=== PATIENT | male | born 1975 | race Two or more races ===

== ENCOUNTER 2023-06-10 15:21 | Inpatient (IN) | payer MEDICAID, OTHER ==
[~2023-06-10] VITALS: Ht 172.7 cm; Wt 89.8 kg
[~2023-06-10 15:21] MED LIST: CEPH500C2 PO
[2023-06-10] MEDS ORDERED: METO25TA20 PO (16:51)
[2023-06-10] MEDS ORDERED: MULT-447 PO (16:51)
[2023-06-10] MEDS ORDERED: GABA300C PO (16:51)
[2023-06-10] MEDS ORDERED: BACL10TA PO (16:51)
[2023-06-10] MEDS ORDERED: HYDR-4076 PO (16:51)
[2023-06-10] MEDS ORDERED: INSU100I40 SQ (16:51)
[2023-06-10] MEDS ORDERED: CRAN425C6 PO (16:51)
[2023-06-10] MEDS ORDERED: ZINC220T3 PO (16:51)
[2023-06-10] MEDS ORDERED: THIA100T70 PO (16:51)
[2023-06-10] MEDS ORDERED: LORA-258 PO (16:51)
[2023-06-10] MEDS ORDERED: ACET-868 PO ×2 (16:51)
[2023-06-10] MEDS ORDERED: DICL100G34 TP (16:51)
[2023-06-10] MEDS ORDERED: ATOR40TA PO (16:51)
[2023-06-10] MEDS ORDERED: ASCO-340 PO (16:51)
[2023-06-10 17:47] LABS: BASOPHILS # (AUTO) 0.1 K/uL (0.0-0.2); BASOPHILS % (AUTO) 0.5 % (0.0-2.0); EOSINOPHILS # (AUTO) 0.2 K/uL (0.0-0.7); EOSINOPHILS % (AUTO) 1.5 % (0.0-6.0); HEMATOCRIT 38 % (39-51); HEMOGLOBIN 12.2 g/dL (13.5-17.5); LYMPHOCYTES # (AUTO) 0.8 K/uL (0.8-4.8); LYMPHOCYTES % (AUTO) 6.6 % (20.0-44.0); MEAN CORPUSCULAR HEMOGLOBIN 29 PG (26.0-33.0); MEAN CORPUSCULAR HGB CONC 32 g/dl (31.0-36.0); MEAN CORPUSCULAR VOLUME 90 fL (80-96); MONOCYTES # (AUTO) 0.7 K/uL (0.1-1.30); MONOCYTES % (AUTO) 5.1 % (2.0-12.0); NEUTROPHILS # (AUTO) 11.1 K/uL (1.8-8.9); NEUTROPHILS % (AUTO) 86.3 % (43.0-81.0); PLATELET COUNT (AUTO) 266 K/uL (150-450); RED BLOOD CELL COUNT(AUTO) 4.24 MIL/uL (4.5-6.0); RED CELL DISTRIBUTION WIDTH 15.1 % (11.5-15.0); WHITE BLOOD COUNT (AUTO) 12.8 K/uL (4.3-11.0)
[2023-06-10 17:59] LABS: APPEARANCE,URINE SLIGHTLY CLOUDY (CLEAR); BILIRUBIN,URINE 1+ (NEGATIVE); BLOOD, URINE NEGATIVE Ery/uL (NEGATIVE); COLOR,URINE ORANGE (YELLOW); KETONES,URINE NEGATIVE (NEGATIVE); LEUKOCYTE ESTERASE ,URINE 1+ (NEGATIVE); NITRITE, URINE NEGATIVE (NEGATIVE); PH,URINE 6.5 (5.0-8.0); PROTEIN,URINE 3+ mg/dl (NEGATIVE); UGLUCOSE NEGATIVE (NEGATIVE); UROBILINOGEN,URINE 0.2 EU/dL (0.2)
[2023-06-10 18:00] LABS: INR 1.08 (0.91-1.10); PROTHROMBIN TIME 11.3 SECS (9.2-11.1)
[2023-06-10 18:01] LABS: CALCIUM, SERUM 9.6 mg/dL (8.5-10.1); CARBON DIOXIDE 25 mmol/L (21-32); CHLORIDE 103 mmol/L (98-107); CREATININE 1.1 mg/dL (0.6-1.3); GLUCOSE 136 mg/dL (74-106); POTASSIUM 3.9 mmol/L (3.5-5.1); SODIUM SERUM 137 mmol/L (136-145); UREA NITROGEN, BLOOD 13 mg/dL (7-18)
[2023-06-10 18:04] LABS: ALCOHOL, BLOOD < 3 mg/dL (0-10)
[2023-06-10 18:05] LABS: ACETAMINOPHEN 0 ug/ml (10-30); SALICYLATE < 0.2 mg/dL (2.8-20.0)
[2023-06-10 18:06] LABS: ALANINE AMINOTRANSFERASE 39 U/L (12-78); ALBUMIN 2.7 g/dL (3.4-5.0); ALKALINE PHOSPHATASE 170 U/L (46-116); ASPARTATE AMINOTRANSFERASE 25 U/L (15-37); BILIRUBIN,DIRECT 0.2 mg/dL (0.0-0.2); BILIRUBIN,TOTAL 0.9 mg/dL (0.2-1.0); TOTAL PROTEIN, SERUM 8.5 g/dL (6.4-8.2)
[2023-06-10 18:13] LABS: ADD URINE CULTURE YES; BACTERIA,URINE 1+ /HPF (None Seen); RBC,URINE 0-2 /HPF (0-2); YEAST,URINE Many /HPF (None Seen)
[2023-06-10 18:14] LABS: MUCUS,URINE Moderate /LPF (None Seen)
[2023-06-10] MEDS ORDERED: VANCOMYCIN 1 GM in IV D5W 250 ML IV ONE (18:30)
[2023-06-10] MEDS ORDERED: PIPERACILLIN /TAZOBACTAM 3.375 G in IV D5W 50 ML IV ONE (18:30)
[2023-06-10 18:31] LABS: BARBITURATE, URINE NEGATIVE (NEGATIVE); BENZODIAZEPINE, URINE NEGATIVE (NEGATIVE); CANNABINOID, URINE NEGATIVE (NEGATIVE); COCCAINE, URINE NEGATIVE (NEGATIVE); OPIATE, URINE NEGATIVE (NEGATIVE); PHENCYCLIDINE SCREEN,URINE NEGATIVE (NEGATIVE)
[2023-06-10 18:32] LABS: AMPHETAMINE, URINE POSITIVE (NEGATIVE)
[2023-06-10] MEDS ORDERED: VANCOMYCIN 1 GM /D5W 250 ML PB IV ONE (18:50)
[2023-06-10] MEDS ORDERED: PIPERACI/TAZO 3.375GM/D5W 50ML PB IV ONE (18:50)
[2023-06-10] MEDS ORDERED: IV NS 0.9% 1,000 ML BAG IV ONE (20:00)
[2023-06-10 21:10] VITALS: BP 115/63; TEMP 97.5; O2SAT 99
[2023-06-10] MEDS ORDERED: DICLOFENAC TOPICAL 100 GM TUBE TP PRN (21:30)
[2023-06-10] MEDS ORDERED: LORAZEPAM 0.5 MG TABLET PO PRN (21:30)
[2023-06-10] MEDS ORDERED: DEXTROSE 50%-WATER 50 ML DISP.SYRIN IV PRN (21:30)
[2023-06-10] MEDS ORDERED: ONDANSETRON HCL/PF 4 MG/2 ML VIAL IVP PRN (21:30)
[2023-06-10] MEDS: BLOOD SUGAR DIAGNOSTIC 1 EACH STRIP IN SCH (22:00)
[2023-06-10] MEDS: ATORVASTATIN 40 MG TABLET PO SCH (22:31)
[2023-06-10] MEDS: GABAPENTIN 300 MG CAPSULE PO SCH (22:31)
[2023-06-10] MEDS: BACLOFEN (10 MG) 10 MG TABLET PO SCH (22:31)
[2023-06-10] MEDS: ENOXAPARIN SODIUM 40 MG/0.4 ML DISP.SYRIN SQ SCH (22:32)
[2023-06-11] MEDS ORDERED: PIPERACI/TAZO 3.375GM/D5W 50ML PB IV ONE (00:14)
[2023-06-11] MEDS: IV NS 0.9% 1,000 ML IV PRN ×2 (00:24→20:50)
[2023-06-11] MEDS: ZOSYN IVPB 3.375 G in IV D5W 50ml IV SCH ×2 (00:55→06:40)
[2023-06-11] MEDS ORDERED: VANCOMYCIN 1 GM in IV D5W 250ml IV ONE ×2 (03:00→06:30)
[2023-06-11] MEDS: GABAPENTIN 300 MG CAPSULE PO SCH ×3 (05:16→20:20)
[2023-06-11] MEDS: BACLOFEN (10 MG) 10 MG TABLET PO SCH ×3 (05:16→20:20)
[2023-06-11 06:50] LABS: BASOPHILS % (AUTO) 0.4 % (0.0-2.0); EOSINOPHILS # (AUTO) 0.2 K/uL (0.0-0.7); EOSINOPHILS % (AUTO) 2.3 % (0.0-6.0); HEMATOCRIT 36 % (39-51); HEMOGLOBIN 11.7 g/dL (13.5-17.5); LYMPHOCYTES # (AUTO) 1.1 K/uL (0.8-4.8); LYMPHOCYTES % (AUTO) 11.9 % (20.0-44.0); MEAN CORPUSCULAR HEMOGLOBIN 30 PG (26.0-33.0); MEAN CORPUSCULAR HGB CONC 33 g/dl (31.0-36.0); MEAN CORPUSCULAR VOLUME 90 fL (80-96); MONOCYTES # (AUTO) 0.6 K/uL (0.1-1.30); MONOCYTES % (AUTO) 6.6 % (2.0-12.0); NEUTROPHILS % (AUTO) 78.8 % (43.0-81.0); PLATELET COUNT (AUTO) 199 K/uL (150-450); RED BLOOD CELL COUNT(AUTO) 3.95 MIL/uL (4.5-6.0); RED CELL DISTRIBUTION WIDTH 15.1 % (11.5-15.0); WHITE BLOOD COUNT (AUTO) 8.9 K/uL (4.3-11.0)
[2023-06-11] MEDS: BLOOD SUGAR DIAGNOSTIC 1 EACH STRIP IN SCH ×4 (06:56→21:59)
[2023-06-11 07:00] VITALS: BP 140/76; TEMP 97.8; O2SAT 97
[2023-06-11 07:11] LABS: CALCIUM, SERUM 9.2 mg/dL (8.5-10.1); CREATININE 0.9 mg/dL (0.6-1.3); MAGNESIUM 2.1 mg/dL (1.8-2.4); PHOSPHORUS 2.8 mg/dL (2.5-4.9); POTASSIUM 3.4 mmol/L (3.5-5.1)
[2023-06-11] MEDS: THIAMINE HCL 100 MG TABLET PO SCH (09:23)
[2023-06-11] MEDS: ASCORBIC ACID 500 MG TABLET PO SCH (09:24)
[2023-06-11] MEDS: ZINC SULFATE 220 MG CAPSULE PO SCH (09:24)
[2023-06-11] MEDS: MULTIVIT W/MINERALS 1 TAB TABLET PO SCH (09:25)
[2023-06-11] MEDS ORDERED: POTASSIUM CHLORIDE 20 MEQ TAB.PRT.SR PO SCH (10:30)
[2023-06-11] MEDS: DAKINS QUARTER STRENGTH (0.125%) 480 ML BOTTLE TOP SCH (11:01)
[2023-06-11] MEDS: HYDROGEL DRESSING 90 GM TUBE TP SCH (11:04)
[2023-06-11] MEDS: INSULIN REGULAR, HUMAN 100 UNIT/ML 3 ML VIAL SQ PRN ×2 (11:57→22:00)
[2023-06-11] MEDS: PIPERACILLIN /TAZOBACTAM 3.375 G in IV D5W 50 ML IV SCH ×2 (12:13→18:00)
[2023-06-11] MEDS: VANCOMYCIN 0.75 GM in IV D5W 250 ML IV SCH ×2 (12:48→21:46)
[2023-06-11] MEDS: CEFEPIME 2 GM in IV D5W 100 ML IV SCH (20:20)
[2023-06-11] MEDS: ENOXAPARIN SODIUM 40 MG/0.4 ML DISP.SYRIN SQ SCH (20:22)
[2023-06-11] MEDS: ACETAMINOPHEN 325 MG TABLET PO PRN (20:24)
[2023-06-11] MEDS: ATORVASTATIN 40 MG TABLET PO SCH (22:01)
[2023-06-11 23:00] VITALS: BP 135/68; TEMP 99.1; O2SAT 98
[2023-06-12] MEDS: VANCOMYCIN 0.75 GM in IV D5W 250 ML IV SCH ×2 (05:02→13:05)
[2023-06-12] MEDS: GABAPENTIN 300 MG CAPSULE PO SCH ×3 (05:51→21:00)
[2023-06-12] MEDS: BACLOFEN (10 MG) 10 MG TABLET PO SCH ×3 (05:51→21:00)
[2023-06-12 06:53] LABS: CALCIUM, SERUM 9.3 mg/dL (8.5-10.1); CREATININE 0.7 mg/dL (0.6-1.3); POTASSIUM 3.1 mmol/L (3.5-5.1)
[2023-06-12] MEDS: BLOOD SUGAR DIAGNOSTIC 1 EACH STRIP IN SCH ×4 (07:11→21:54)
[2023-06-12] MEDS ORDERED: POTASSIUM CHLORIDE 20 MEQ TAB.PRT.SR PO ONE ×2 (08:00→09:00)
[2023-06-12] MEDS: CEFEPIME 2 GM in IV D5W 100 ML IV SCH (09:41)
[2023-06-12] MEDS: ASCORBIC ACID 500 MG TABLET PO SCH (10:00)
[2023-06-12] MEDS: MULTIVIT W/MINERALS 1 TAB TABLET PO SCH (10:00)
[2023-06-12] MEDS: ZINC SULFATE 220 MG CAPSULE PO SCH (10:00)
[2023-06-12] MEDS: THIAMINE HCL 100 MG TABLET PO SCH (10:00)
[2023-06-12] MEDS: DAKINS QUARTER STRENGTH (0.125%) 480 ML BOTTLE TOP SCH (10:34)
[2023-06-12] MEDS: HYDROGEL DRESSING 90 GM TUBE TP SCH (10:36)
[2023-06-12] MEDS: INSULIN REGULAR, HUMAN 100 UNIT/ML 3 ML VIAL SQ PRN ×3 (11:25→21:54)
[2023-06-12 13:05] VITALS: BP 133/78; TEMP 98.2; O2SAT 96
[2023-06-12] MEDS: PROSOURCE / PROSTAT (PYXIS) 30 ML UDC PO SCH ×2 (13:10→18:10)
[2023-06-12] MEDS: IV NS 0.9% 1,000 ML IV PRN (15:08)
[2023-06-12 16:14] VITALS: BP 143/78; TEMP 98.2; O2SAT 99
[2023-06-12] MEDS: GLUCERNA SHAKE 237 ML CAN PO SCH (17:16)
[2023-06-12] MEDS: ARGININE/GLUTAMINE/CALCIUM BMB 1 EACH POWD.PACK PO SCH (18:09)
[2023-06-12] MEDS ORDERED: DAPTOMYCIN 500 MG in IV NS 0.9% 50 ML IV SCH (19:00)
[2023-06-12 20:00] VITALS: BP_SYST 178; TEMP 97.5; O2SAT 99
[2023-06-12] MEDS ORDERED: hydrALAZINE HCL IV 20 MG VIAL IV PRN (20:42)
[2023-06-12] MEDS: LINEZOLID 600 MG TABLET PO SCH (21:00)
[2023-06-12] MEDS: ENOXAPARIN SODIUM 40 MG/0.4 ML DISP.SYRIN SQ SCH (21:00)
[2023-06-12] MEDS ORDERED: MEROPENEM 1 G in IV NS 0.9% 100 ML IV SCH (21:00)
[2023-06-12] MEDS: ATORVASTATIN 40 MG TABLET PO SCH (21:26)
[2023-06-12] MEDS ORDERED: MEROPENEM 1 G VIAL IV ONE (23:06)
[2023-06-12] MEDS ORDERED: MEROPENEM 1 G in IV NS 0.9% 100 ML IV ONE (23:30)
[2023-06-13 00:20] VITALS: BP 130/80
[2023-06-13] MEDS: IV NS 0.9% 1,000 ML IV PRN (04:10)
[2023-06-13] MEDS: GABAPENTIN 300 MG CAPSULE PO SCH ×3 (04:17→20:05)
[2023-06-13] MEDS: BACLOFEN (10 MG) 10 MG TABLET PO SCH ×3 (04:17→20:05)
[2023-06-13] MEDS: BLOOD SUGAR DIAGNOSTIC 1 EACH STRIP IN SCH ×5 (06:43→21:56)
[2023-06-13] MEDS: INSULIN REGULAR, HUMAN 100 UNIT/ML 3 ML VIAL SQ PRN ×2 (06:43→17:58)
[2023-06-13 06:50] LABS: CALCIUM, SERUM 9.2 mg/dL (8.5-10.1); CREATININE 0.6 mg/dL (0.6-1.3); POTASSIUM 4.5 mmol/L (3.5-5.1)
[2023-06-13] MEDS ORDERED: MEROPENEM 1 G in IV NS 0.9% 100 ML IV SCH (08:00)
[2023-06-13 08:32] VITALS: BP 117/58; TEMP 98; O2SAT 97
[2023-06-13] MEDS: MEROPENEM 1 G in IV NS 0.9% 100 ML IV SCH ×3 (08:58→23:35)
[2023-06-13] MEDS: GLUCERNA SHAKE 237 ML CAN PO SCH ×3 (08:58→17:18)
[2023-06-13] MEDS: PROSOURCE / PROSTAT (PYXIS) 30 ML UDC PO SCH ×3 (08:58→17:18)
[2023-06-13] MEDS: HYDROGEL DRESSING 90 GM TUBE TP SCH (09:29)
[2023-06-13] MEDS: LINEZOLID 600 MG TABLET PO SCH ×2 (09:29→20:05)
[2023-06-13] MEDS: MULTIVIT W/MINERALS 1 TAB TABLET PO SCH (09:29)
[2023-06-13] MEDS: ARGININE/GLUTAMINE/CALCIUM BMB 1 EACH POWD.PACK PO SCH ×2 (09:29→17:18)
[2023-06-13] MEDS: DAKINS QUARTER STRENGTH (0.125%) 480 ML BOTTLE TOP SCH (09:29)
[2023-06-13] MEDS: THIAMINE HCL 100 MG TABLET PO SCH (09:29)
[2023-06-13] MEDS: ASCORBIC ACID 500 MG TABLET PO SCH (09:29)
[2023-06-13] MEDS: ZINC SULFATE 220 MG CAPSULE PO SCH (09:31)
[2023-06-13 16:03] VITALS: BP 126/76; TEMP 98.2; O2SAT 97
[2023-06-13] MEDS: ENOXAPARIN SODIUM 40 MG/0.4 ML DISP.SYRIN SQ SCH (20:08)
[2023-06-13] MEDS: ATORVASTATIN 40 MG TABLET PO SCH (21:56)
[2023-06-14] MEDS: IV NS 0.9% 1,000 ML IV PRN ×2 (04:11→23:52)
[2023-06-14] MEDS: GABAPENTIN 300 MG CAPSULE PO SCH ×3 (05:10→21:56)
[2023-06-14] MEDS: BACLOFEN (10 MG) 10 MG TABLET PO SCH ×3 (05:10→21:56)
[2023-06-14] MEDS: BLOOD SUGAR DIAGNOSTIC 1 EACH STRIP IN SCH ×4 (06:19→21:56)
[2023-06-14 08:00] VITALS: BP 127/82; TEMP 98; O2SAT 98
[2023-06-14] MEDS: GLUCERNA SHAKE 237 ML CAN PO SCH ×4 (08:00→17:00)
[2023-06-14] MEDS: MEROPENEM 1 G in IV NS 0.9% 100 ML IV SCH ×3 (08:46→23:48)
[2023-06-14] MEDS: PROSOURCE / PROSTAT (PYXIS) 30 ML UDC PO SCH ×3 (08:47→16:44)
[2023-06-14] MEDS: THIAMINE HCL 100 MG TABLET PO SCH (09:09)
[2023-06-14] MEDS: LINEZOLID 600 MG TABLET PO SCH ×2 (09:09→21:56)
[2023-06-14] MEDS: ARGININE/GLUTAMINE/CALCIUM BMB 1 EACH POWD.PACK PO SCH ×2 (09:09→16:44)
[2023-06-14] MEDS: MULTIVIT W/MINERALS 1 TAB TABLET PO SCH (09:10)
[2023-06-14] MEDS: ASCORBIC ACID 500 MG TABLET PO SCH (09:10)
[2023-06-14] MEDS: ZINC SULFATE 220 MG CAPSULE PO SCH (09:10)
[2023-06-14] MEDS: HYDROGEL DRESSING 90 GM TUBE TP SCH (09:30)
[2023-06-14] MEDS: DAKINS QUARTER STRENGTH (0.125%) 480 ML BOTTLE TOP SCH (09:31)
[2023-06-14] MEDS: INSULIN REGULAR, HUMAN 100 UNIT/ML 3 ML VIAL SQ PRN ×2 (11:30→17:02)
[2023-06-14 16:00] VITALS: BP 115/62; TEMP 98.7; O2SAT 95
[2023-06-14] MEDS: ENOXAPARIN SODIUM 40 MG/0.4 ML DISP.SYRIN SQ SCH (21:55)
[2023-06-14] MEDS: ATORVASTATIN 40 MG TABLET PO SCH (21:56)
[2023-06-15] MEDS: GABAPENTIN 300 MG CAPSULE PO SCH ×3 (05:21→21:03)
[2023-06-15] MEDS: BACLOFEN (10 MG) 10 MG TABLET PO SCH ×3 (05:22→21:04)
[2023-06-15 07:00] VITALS: BP 100/65; TEMP 97.8; O2SAT 97
[2023-06-15] MEDS: BLOOD SUGAR DIAGNOSTIC 1 EACH STRIP IN SCH ×4 (07:37→21:16)
[2023-06-15] MEDS: DAKINS QUARTER STRENGTH (0.125%) 480 ML BOTTLE TOP SCH (09:00)
[2023-06-15] MEDS: MEROPENEM 1 G in IV NS 0.9% 100 ML IV SCH ×2 (09:19→16:10)
[2023-06-15] MEDS: GLUCERNA SHAKE 237 ML CAN PO SCH ×3 (09:20→17:25)
[2023-06-15] MEDS: PROSOURCE / PROSTAT (PYXIS) 30 ML UDC PO SCH ×3 (09:20→17:24)
[2023-06-15] MEDS: ARGININE/GLUTAMINE/CALCIUM BMB 1 EACH POWD.PACK PO SCH ×2 (09:20→17:25)
[2023-06-15] MEDS: MULTIVIT W/MINERALS 1 TAB TABLET PO SCH (09:21)
[2023-06-15] MEDS: ZINC SULFATE 220 MG CAPSULE PO SCH (09:21)
[2023-06-15] MEDS: LINEZOLID 600 MG TABLET PO SCH ×2 (09:21→21:03)
[2023-06-15] MEDS: ASCORBIC ACID 500 MG TABLET PO SCH (09:21)
[2023-06-15] MEDS: HYDROGEL DRESSING 90 GM TUBE TP SCH (09:22)
[2023-06-15] MEDS: THIAMINE HCL 100 MG TABLET PO SCH (09:22)
[2023-06-15] MEDS: INSULIN REGULAR, HUMAN 100 UNIT/ML 3 ML VIAL SQ PRN ×2 (12:20→21:20)
[2023-06-15 16:00] VITALS: BP 113/74; TEMP 98.3; O2SAT 95
[2023-06-15 20:00] VITALS: BP 118/99; TEMP 98.2; O2SAT 95
[2023-06-15] MEDS: ATORVASTATIN 40 MG TABLET PO SCH (21:03)
[2023-06-15] MEDS: ENOXAPARIN SODIUM 40 MG/0.4 ML DISP.SYRIN SQ SCH (21:15)
[2023-06-15] MEDS: IV NS 0.9% 1,000 ML IV PRN (21:34)
[2023-06-16] MEDS: MEROPENEM 1 G in IV NS 0.9% 100 ML IV SCH ×4 (00:03→23:31)
[2023-06-16] MEDS: GABAPENTIN 300 MG CAPSULE PO SCH ×3 (04:01→21:51)
[2023-06-16] MEDS: BACLOFEN (10 MG) 10 MG TABLET PO SCH ×3 (04:02→21:50)
[2023-06-16 06:41] LABS: CALCIUM, SERUM 8.9 mg/dL (8.5-10.1); CREATININE 0.8 mg/dL (0.6-1.3); POTASSIUM 3.3 mmol/L (3.5-5.1)
[2023-06-16] MEDS: BLOOD SUGAR DIAGNOSTIC 1 EACH STRIP IN SCH ×4 (06:44→22:05)
[2023-06-16] MEDS: PROSOURCE / PROSTAT (PYXIS) 30 ML UDC PO SCH ×3 (07:35→17:25)
[2023-06-16] MEDS: GLUCERNA SHAKE 237 ML CAN PO SCH ×2 (07:35→12:00)
[2023-06-16] MEDS: ACETAMINOPHEN 325 MG TABLET PO PRN (07:51)
[2023-06-16 08:00] VITALS: BP 111/71; TEMP 100.1; O2SAT 98
[2023-06-16] MEDS ORDERED: POTASSIUM CHLORIDE 20 MEQ TAB.PRT.SR PO ONE ×2 (08:00→10:00)
[2023-06-16 08:16] LABS: BASOPHILS % (AUTO) 0.4 % (0.0-2.0); EOSINOPHILS # (AUTO) 0.2 K/uL (0.0-0.7); HEMATOCRIT 32 % (39-51); HEMOGLOBIN 10.5 g/dL (13.5-17.5); LYMPHOCYTES # (AUTO) 1.1 K/uL (0.8-4.8); LYMPHOCYTES % (AUTO) 20.8 % (20.0-44.0); MEAN CORPUSCULAR HEMOGLOBIN 29 PG (26.0-33.0); MEAN CORPUSCULAR HGB CONC 33 g/dl (31.0-36.0); MEAN CORPUSCULAR VOLUME 89 fL (80-96); MONOCYTES # (AUTO) 0.3 K/uL (0.1-1.30); MONOCYTES % (AUTO) 6.4 % (2.0-12.0); NEUTROPHILS # (AUTO) 3.5 K/uL (1.8-8.9); NEUTROPHILS % (AUTO) 68.4 % (43.0-81.0); PLATELET COUNT (AUTO) 182 K/uL (150-450); RED BLOOD CELL COUNT(AUTO) 3.63 MIL/uL (4.5-6.0); RED CELL DISTRIBUTION WIDTH 14.6 % (11.5-15.0); WHITE BLOOD COUNT (AUTO) 5.2 K/uL (4.3-11.0)
[2023-06-16] MEDS: THIAMINE HCL 100 MG TABLET PO SCH (08:21)
[2023-06-16] MEDS: LINEZOLID 600 MG TABLET PO SCH ×2 (08:21→21:51)
[2023-06-16] MEDS: ASCORBIC ACID 500 MG TABLET PO SCH (08:21)
[2023-06-16] MEDS: ZINC SULFATE 220 MG CAPSULE PO SCH (08:21)
[2023-06-16] MEDS: MULTIVIT W/MINERALS 1 TAB TABLET PO SCH (08:21)
[2023-06-16] MEDS: DAKINS QUARTER STRENGTH (0.125%) 480 ML BOTTLE TOP SCH (08:22)
[2023-06-16] MEDS: HYDROGEL DRESSING 90 GM TUBE TP SCH (08:22)
[2023-06-16] MEDS: ARGININE/GLUTAMINE/CALCIUM BMB 1 EACH POWD.PACK PO SCH ×2 (08:23→17:00)
[2023-06-16 16:00] VITALS: BP 132/67; TEMP 98.6; O2SAT 97
[2023-06-16] MEDS: INSULIN REGULAR, HUMAN 100 UNIT/ML 3 ML VIAL SQ PRN ×2 (18:06→22:01)
[2023-06-16 20:00] VITALS: BP 148/89; TEMP 98.1; O2SAT 94
[2023-06-16] MEDS: ATORVASTATIN 40 MG TABLET PO SCH (21:51)
[2023-06-16] MEDS: ENOXAPARIN SODIUM 40 MG/0.4 ML DISP.SYRIN SQ SCH (21:52)
[2023-06-17] MEDS: IV NS 0.9% 1,000 ML IV PRN ×2 (04:05→21:58)
[2023-06-17] MEDS: BACLOFEN (10 MG) 10 MG TABLET PO SCH ×3 (05:01→21:32)
[2023-06-17] MEDS: GABAPENTIN 300 MG CAPSULE PO SCH ×3 (05:01→21:33)
[2023-06-17] MEDS: BLOOD SUGAR DIAGNOSTIC 1 EACH STRIP IN SCH ×4 (06:22→21:45)
[2023-06-17 07:00] VITALS: BP 139/67; TEMP 98.1; O2SAT 96
[2023-06-17] MEDS: ASCORBIC ACID 500 MG TABLET PO SCH (08:09)
[2023-06-17] MEDS: THIAMINE HCL 100 MG TABLET PO SCH (08:09)
[2023-06-17] MEDS: LINEZOLID 600 MG TABLET PO SCH ×2 (08:09→21:33)
[2023-06-17] MEDS: PROSOURCE / PROSTAT (PYXIS) 30 ML UDC PO SCH ×3 (08:10→16:23)
[2023-06-17] MEDS: MULTIVIT W/MINERALS 1 TAB TABLET PO SCH (08:10)
[2023-06-17] MEDS: ZINC SULFATE 220 MG CAPSULE PO SCH (08:10)
[2023-06-17] MEDS: MEROPENEM 1 G in IV NS 0.9% 100 ML IV SCH ×3 (08:10→23:19)
[2023-06-17] MEDS: ARGININE/GLUTAMINE/CALCIUM BMB 1 EACH POWD.PACK PO SCH ×2 (08:10→16:24)
[2023-06-17] MEDS: HYDROGEL DRESSING 90 GM TUBE TP SCH (08:11)
[2023-06-17] MEDS: DAKINS QUARTER STRENGTH (0.125%) 480 ML BOTTLE TOP SCH (08:11)
[2023-06-17] MEDS: INSULIN REGULAR, HUMAN 100 UNIT/ML 3 ML VIAL SQ PRN ×3 (12:36→22:07)
[2023-06-17 16:00] VITALS: BP 148/88; TEMP 98; O2SAT 98
[2023-06-17 20:00] VITALS: BP 139/74; TEMP 97.8; O2SAT 98
[2023-06-17] MEDS: ATORVASTATIN 40 MG TABLET PO SCH (21:33)
[2023-06-17] MEDS: ENOXAPARIN SODIUM 40 MG/0.4 ML DISP.SYRIN SQ SCH (21:43)
[2023-06-18] MEDS: BACLOFEN (10 MG) 10 MG TABLET PO SCH ×3 (05:18→21:08)
[2023-06-18] MEDS: GABAPENTIN 300 MG CAPSULE PO SCH ×3 (05:19→21:07)
[2023-06-18 07:00] VITALS: BP 90/54; TEMP 98.2; O2SAT 97
[2023-06-18] MEDS: BLOOD SUGAR DIAGNOSTIC 1 EACH STRIP IN SCH ×4 (07:38→22:02)
[2023-06-18] MEDS: INSULIN REGULAR, HUMAN 100 UNIT/ML 3 ML VIAL SQ PRN ×4 (07:39→22:02)
[2023-06-18] MEDS: MEROPENEM 1 G in IV NS 0.9% 100 ML IV SCH ×3 (09:15→23:10)
[2023-06-18] MEDS: HYDROGEL DRESSING 90 GM TUBE TP SCH (09:15)
[2023-06-18] MEDS: DAKINS QUARTER STRENGTH (0.125%) 480 ML BOTTLE TOP SCH (09:16)
[2023-06-18] MEDS: ARGININE/GLUTAMINE/CALCIUM BMB 1 EACH POWD.PACK PO SCH ×2 (09:16→17:43)
[2023-06-18] MEDS: PROSOURCE / PROSTAT (PYXIS) 30 ML UDC PO SCH ×3 (09:16→17:43)
[2023-06-18] MEDS: ZINC SULFATE 220 MG CAPSULE PO SCH (09:17)
[2023-06-18] MEDS: ASCORBIC ACID 500 MG TABLET PO SCH (09:17)
[2023-06-18] MEDS: MULTIVIT W/MINERALS 1 TAB TABLET PO SCH (09:17)
[2023-06-18] MEDS: LINEZOLID 600 MG TABLET PO SCH ×2 (09:17→21:07)
[2023-06-18] MEDS: THIAMINE HCL 100 MG TABLET PO SCH (09:17)
[2023-06-18 16:00] VITALS: BP 106/67; TEMP 98.7; O2SAT 97
[2023-06-18 20:00] VITALS: BP 114/73; TEMP 98.4; O2SAT 97
[2023-06-18] MEDS: ATORVASTATIN 40 MG TABLET PO SCH (21:08)
[2023-06-18] MEDS: ENOXAPARIN SODIUM 40 MG/0.4 ML DISP.SYRIN SQ SCH (21:13)
[2023-06-18] MEDS: IV NS 0.9% 1,000 ML IV PRN (22:04)
[2023-06-19] MEDS: BACLOFEN (10 MG) 10 MG TABLET PO SCH ×3 (04:53→21:06)
[2023-06-19] MEDS: GABAPENTIN 300 MG CAPSULE PO SCH ×3 (04:53→21:06)
[2023-06-19] MEDS: BLOOD SUGAR DIAGNOSTIC 1 EACH STRIP IN SCH ×4 (06:39→21:22)
[2023-06-19 07:00] VITALS: BP 97/65; TEMP 98.4; O2SAT 96
[2023-06-19] MEDS: PROSOURCE / PROSTAT (PYXIS) 30 ML UDC PO SCH ×3 (08:50→16:58)
[2023-06-19] MEDS: ARGININE/GLUTAMINE/CALCIUM BMB 1 EACH POWD.PACK PO SCH ×2 (08:50→16:57)
[2023-06-19] MEDS: MEROPENEM 1 G in IV NS 0.9% 100 ML IV SCH ×3 (08:50→23:00)
[2023-06-19] MEDS: LINEZOLID 600 MG TABLET PO SCH ×2 (09:13→21:07)
[2023-06-19] MEDS: ASCORBIC ACID 500 MG TABLET PO SCH (09:13)
[2023-06-19] MEDS: THIAMINE HCL 100 MG TABLET PO SCH (09:13)
[2023-06-19] MEDS: ZINC SULFATE 220 MG CAPSULE PO SCH (09:13)
[2023-06-19] MEDS: MULTIVIT W/MINERALS 1 TAB TABLET PO SCH (09:13)
[2023-06-19] MEDS: HYDROGEL DRESSING 90 GM TUBE TP SCH (09:24)
[2023-06-19] MEDS: DAKINS QUARTER STRENGTH (0.125%) 480 ML BOTTLE TOP SCH (09:24)
[2023-06-19] MEDS: INSULIN REGULAR, HUMAN 100 UNIT/ML 3 ML VIAL SQ PRN ×3 (11:44→21:25)
[2023-06-19 16:00] VITALS: BP 117/72; TEMP 98.1; O2SAT 96
[2023-06-19 20:00] VITALS: BP 121/68; TEMP 98.4; O2SAT 97
[2023-06-19] MEDS: ATORVASTATIN 40 MG TABLET PO SCH (21:07)
[2023-06-19] MEDS: ENOXAPARIN SODIUM 40 MG/0.4 ML DISP.SYRIN SQ SCH (21:21)
[2023-06-19] MEDS: IV NS 0.9% 1,000 ML IV PRN (21:29)
[2023-06-20] MEDS: BACLOFEN (10 MG) 10 MG TABLET PO SCH ×3 (05:23→21:17)
[2023-06-20] MEDS: GABAPENTIN 300 MG CAPSULE PO SCH ×3 (05:23→21:14)
[2023-06-20] MEDS: BLOOD SUGAR DIAGNOSTIC 1 EACH STRIP IN SCH ×4 (06:34→22:02)
[2023-06-20 08:00] VITALS: BP 133/68; TEMP 98.4; O2SAT 98
[2023-06-20] MEDS ORDERED: LIDOCAINE 1%-EPI 1:100,000 20 ML VIAL TP ONE (08:30)
[2023-06-20] MEDS: HYDROGEL DRESSING 90 GM TUBE TP SCH (09:06)
[2023-06-20] MEDS: DAKINS QUARTER STRENGTH (0.125%) 480 ML BOTTLE TOP SCH (09:06)
[2023-06-20] MEDS: LINEZOLID 600 MG TABLET PO SCH ×2 (09:13→21:14)
[2023-06-20] MEDS: THIAMINE HCL 100 MG TABLET PO SCH (09:13)
[2023-06-20] MEDS: ASCORBIC ACID 500 MG TABLET PO SCH (09:13)
[2023-06-20] MEDS: MULTIVIT W/MINERALS 1 TAB TABLET PO SCH (09:13)
[2023-06-20] MEDS: MEROPENEM 1 G in IV NS 0.9% 100 ML IV SCH ×2 (09:13→16:13)
[2023-06-20] MEDS: ZINC SULFATE 220 MG CAPSULE PO SCH (09:14)
[2023-06-20] MEDS: PROSOURCE / PROSTAT (PYXIS) 30 ML UDC PO SCH ×3 (09:16→17:39)
[2023-06-20] MEDS: ARGININE/GLUTAMINE/CALCIUM BMB 1 EACH POWD.PACK PO SCH ×2 (09:16→17:41)
[2023-06-20] MEDS: INSULIN REGULAR, HUMAN 100 UNIT/ML 3 ML VIAL SQ PRN ×3 (11:53→21:36)
[2023-06-20 16:00] VITALS: BP 128/56; TEMP 99; O2SAT 95
[2023-06-20] MEDS: BACITRACIN ZINC OINT (15 GM) 15 GM TUBE TP SCH ×2 (16:13→17:36)
[2023-06-20] MEDS: IV NS 0.9% 1,000 ML IV PRN (17:46)
[2023-06-20 20:00] VITALS: BP 133/81; TEMP 98.9; O2SAT 96
[2023-06-20] MEDS: ATORVASTATIN 40 MG TABLET PO SCH (21:14)
[2023-06-20] MEDS: ENOXAPARIN SODIUM 40 MG/0.4 ML DISP.SYRIN SQ SCH (21:21)
[2023-06-21] MEDS: MEROPENEM 1 G in IV NS 0.9% 100 ML IV SCH ×4 (00:17→23:53)
[2023-06-21 05:53] LABS: BASOPHILS # (AUTO) 0.1 K/uL (0.0-0.2); EOSINOPHILS # (AUTO) 0.2 K/uL (0.0-0.7); EOSINOPHILS % (AUTO) 3.9 % (0.0-6.0); HEMATOCRIT 34 % (39-51); HEMOGLOBIN 11.1 g/dL (13.5-17.5); LYMPHOCYTES # (AUTO) 1.4 K/uL (0.8-4.8); LYMPHOCYTES % (AUTO) 23.6 % (20.0-44.0); MEAN CORPUSCULAR HEMOGLOBIN 29 PG (26.0-33.0); MEAN CORPUSCULAR HGB CONC 33 g/dl (31.0-36.0); MEAN CORPUSCULAR VOLUME 88 fL (80-96); MONOCYTES # (AUTO) 0.4 K/uL (0.1-1.30); MONOCYTES % (AUTO) 6.4 % (2.0-12.0); NEUTROPHILS # (AUTO) 3.8 K/uL (1.8-8.9); NEUTROPHILS % (AUTO) 65.1 % (43.0-81.0); PLATELET COUNT (AUTO) 168 K/uL (150-450); RED BLOOD CELL COUNT(AUTO) 3.79 MIL/uL (4.5-6.0); RED CELL DISTRIBUTION WIDTH 14.9 % (11.5-15.0); WHITE BLOOD COUNT (AUTO) 5.9 K/uL (4.3-11.0)
[2023-06-21] MEDS: BACLOFEN (10 MG) 10 MG TABLET PO SCH ×3 (05:53→21:46)
[2023-06-21] MEDS: GABAPENTIN 300 MG CAPSULE PO SCH ×3 (05:53→21:46)
[2023-06-21 06:18] LABS: CALCIUM, SERUM 9.3 mg/dL (8.5-10.1); CREATININE 0.8 mg/dL (0.6-1.3); POTASSIUM 3.5 mmol/L (3.5-5.1)
[2023-06-21] MEDS: BLOOD SUGAR DIAGNOSTIC 1 EACH STRIP IN SCH ×4 (06:38→22:02)
[2023-06-21] MEDS: PROSOURCE / PROSTAT (PYXIS) 30 ML UDC PO SCH ×3 (07:40→16:37)
[2023-06-21 08:00] VITALS: BP 125/78; TEMP 97.9; O2SAT 99
[2023-06-21] MEDS: ASCORBIC ACID 500 MG TABLET PO SCH (08:14)
[2023-06-21] MEDS: LINEZOLID 600 MG TABLET PO SCH ×2 (08:14→21:45)
[2023-06-21] MEDS: ZINC SULFATE 220 MG CAPSULE PO SCH (08:14)
[2023-06-21] MEDS: MULTIVIT W/MINERALS 1 TAB TABLET PO SCH (08:14)
[2023-06-21] MEDS: THIAMINE HCL 100 MG TABLET PO SCH (08:14)
[2023-06-21] MEDS: BACITRACIN ZINC OINT (15 GM) 15 GM TUBE TP SCH ×2 (08:53→16:38)
[2023-06-21] MEDS: DAKINS QUARTER STRENGTH (0.125%) 480 ML BOTTLE TOP SCH (08:53)
[2023-06-21] MEDS: ARGININE/GLUTAMINE/CALCIUM BMB 1 EACH POWD.PACK PO SCH ×2 (08:53→16:37)
[2023-06-21] MEDS: HYDROGEL DRESSING 90 GM TUBE TP SCH (08:54)
[2023-06-21] MEDS: INSULIN REGULAR, HUMAN 100 UNIT/ML 3 ML VIAL SQ PRN ×2 (12:12→17:01)
[2023-06-21] MEDS: IV NS 0.9% 1,000 ML IV PRN (15:18)
[2023-06-21 16:12] VITALS: BP 124/69; TEMP 98.8; O2SAT 96
[2023-06-21] MEDS: ENOXAPARIN SODIUM 40 MG/0.4 ML DISP.SYRIN SQ SCH (21:45)
[2023-06-21] MEDS: ATORVASTATIN 40 MG TABLET PO SCH (21:46)
[2023-06-22 06:00] VITALS: BP 140/97; TEMP 97.6; O2SAT 99
[2023-06-22] MEDS: GABAPENTIN 300 MG CAPSULE PO SCH ×3 (06:05→21:28)
[2023-06-22] MEDS: BACLOFEN (10 MG) 10 MG TABLET PO SCH ×3 (06:05→21:28)
[2023-06-22] MEDS: BLOOD SUGAR DIAGNOSTIC 1 EACH STRIP IN SCH ×4 (06:31→21:44)
[2023-06-22 07:00] VITALS: BP 145/83; TEMP 97.7; O2SAT 99
[2023-06-22] MEDS: PROSOURCE / PROSTAT (PYXIS) 30 ML UDC PO SCH ×3 (07:46→16:11)
[2023-06-22] MEDS: MEROPENEM 1 G in IV NS 0.9% 100 ML IV SCH ×2 (07:47→16:09)
[2023-06-22] MEDS: HYDROGEL DRESSING 90 GM TUBE TP SCH (08:49)
[2023-06-22] MEDS: BACITRACIN ZINC OINT (15 GM) 15 GM TUBE TP SCH ×2 (08:49→16:11)
[2023-06-22] MEDS: DAKINS QUARTER STRENGTH (0.125%) 480 ML BOTTLE TOP SCH (08:49)
[2023-06-22] MEDS: ARGININE/GLUTAMINE/CALCIUM BMB 1 EACH POWD.PACK PO SCH ×2 (08:50→16:11)
[2023-06-22] MEDS: THIAMINE HCL 100 MG TABLET PO SCH (08:51)
[2023-06-22] MEDS: ZINC SULFATE 220 MG CAPSULE PO SCH (08:51)
[2023-06-22] MEDS: MULTIVIT W/MINERALS 1 TAB TABLET PO SCH (08:51)
[2023-06-22] MEDS: ASCORBIC ACID 500 MG TABLET PO SCH (08:51)
[2023-06-22] MEDS: LINEZOLID 600 MG TABLET PO SCH ×2 (08:51→21:28)
[2023-06-22] MEDS: INSULIN REGULAR, HUMAN 100 UNIT/ML 3 ML VIAL SQ PRN ×3 (12:16→21:47)
[2023-06-22] MEDS: IV NS 0.9% 1,000 ML IV PRN (14:43)
[2023-06-22 16:00] VITALS: BP 144/77; TEMP 97.4; O2SAT 97
[2023-06-22] MEDS: ATORVASTATIN 40 MG TABLET PO SCH (21:29)
[2023-06-22] MEDS: ENOXAPARIN SODIUM 40 MG/0.4 ML DISP.SYRIN SQ SCH (21:30)
[2023-06-23] MEDS: MEROPENEM 1 G in IV NS 0.9% 100 ML IV SCH ×3 (00:46→18:03)
[2023-06-23] MEDS: BACLOFEN (10 MG) 10 MG TABLET PO SCH ×3 (05:58→21:52)
[2023-06-23] MEDS: GABAPENTIN 300 MG CAPSULE PO SCH ×3 (05:58→21:52)
[2023-06-23] MEDS: BLOOD SUGAR DIAGNOSTIC 1 EACH STRIP IN SCH ×4 (07:30→22:35)
[2023-06-23] MEDS: PROSOURCE / PROSTAT (PYXIS) 30 ML UDC PO SCH ×3 (08:00→16:48)
[2023-06-23] MEDS: ARGININE/GLUTAMINE/CALCIUM BMB 1 EACH POWD.PACK PO SCH ×2 (08:17→16:48)
[2023-06-23] MEDS: LINEZOLID 600 MG TABLET PO SCH ×2 (08:17→21:52)
[2023-06-23] MEDS: ASCORBIC ACID 500 MG TABLET PO SCH (08:17)
[2023-06-23] MEDS: ZINC SULFATE 220 MG CAPSULE PO SCH (08:17)
[2023-06-23] MEDS: THIAMINE HCL 100 MG TABLET PO SCH (08:17)
[2023-06-23] MEDS: MULTIVIT W/MINERALS 1 TAB TABLET PO SCH (08:17)
[2023-06-23] MEDS: HYDROGEL DRESSING 90 GM TUBE TP SCH (08:20)
[2023-06-23] MEDS: BACITRACIN ZINC OINT (15 GM) 15 GM TUBE TP SCH ×2 (08:20→16:49)
[2023-06-23] MEDS: DAKINS QUARTER STRENGTH (0.125%) 480 ML BOTTLE TOP SCH (08:20)
[2023-06-23 16:15] VITALS: BP 132/102; TEMP 98; O2SAT 98
[2023-06-23 20:00] VITALS: BP 112/74; TEMP 98.3; O2SAT 98
[2023-06-23] MEDS: ATORVASTATIN 40 MG TABLET PO SCH (21:52)
[2023-06-23] MEDS: ENOXAPARIN SODIUM 40 MG/0.4 ML DISP.SYRIN SQ SCH (21:54)
[2023-06-23] MEDS: INSULIN REGULAR, HUMAN 100 UNIT/ML 3 ML VIAL SQ PRN (22:39)
[2023-06-24] MEDS: MEROPENEM 1 G in IV NS 0.9% 100 ML IV SCH ×3 (00:59→23:12)
[2023-06-24] MEDS: IV NS 0.9% 1,000 ML IV PRN (01:00)
[2023-06-24] MEDS: BACLOFEN (10 MG) 10 MG TABLET PO SCH ×3 (05:30→20:22)
[2023-06-24] MEDS: GABAPENTIN 300 MG CAPSULE PO SCH ×3 (05:30→20:23)
[2023-06-24] MEDS: BLOOD SUGAR DIAGNOSTIC 1 EACH STRIP IN SCH ×4 (07:00→22:26)
[2023-06-24] MEDS: INSULIN REGULAR, HUMAN 100 UNIT/ML 3 ML VIAL SQ PRN ×3 (07:00→22:26)
[2023-06-24 08:00] VITALS: BP 108/71; TEMP 97.9; O2SAT 96
[2023-06-24] MEDS: MULTIVIT W/MINERALS 1 TAB TABLET PO SCH (08:56)
[2023-06-24] MEDS: ASCORBIC ACID 500 MG TABLET PO SCH (08:56)
[2023-06-24] MEDS: ZINC SULFATE 220 MG CAPSULE PO SCH (08:57)
[2023-06-24] MEDS: ARGININE/GLUTAMINE/CALCIUM BMB 1 EACH POWD.PACK PO SCH ×2 (08:57→16:57)
[2023-06-24] MEDS: PROSOURCE / PROSTAT (PYXIS) 30 ML UDC PO SCH ×3 (08:57→16:57)
[2023-06-24] MEDS: THIAMINE HCL 100 MG TABLET PO SCH (08:57)
[2023-06-24] MEDS: LINEZOLID 600 MG TABLET PO SCH ×2 (08:57→20:22)
[2023-06-24] MEDS: HYDROGEL DRESSING 90 GM TUBE TP SCH (09:12)
[2023-06-24] MEDS: BACITRACIN ZINC OINT (15 GM) 15 GM TUBE TP SCH ×2 (09:12→17:14)
[2023-06-24] MEDS: DAKINS QUARTER STRENGTH (0.125%) 480 ML BOTTLE TOP SCH (09:12)
[2023-06-24 16:23] VITALS: BP 155/98; TEMP 99; O2SAT 98
[2023-06-24] MEDS: ENOXAPARIN SODIUM 40 MG/0.4 ML DISP.SYRIN SQ SCH (20:29)
[2023-06-24] MEDS: ATORVASTATIN 40 MG TABLET PO SCH (22:11)
[2023-06-25] MEDS: BACLOFEN (10 MG) 10 MG TABLET PO SCH ×3 (04:08→20:38)
[2023-06-25] MEDS: IV NS 0.9% 1,000 ML IV PRN (04:08)
[2023-06-25] MEDS: GABAPENTIN 300 MG CAPSULE PO SCH ×3 (04:08→20:38)
[2023-06-25] MEDS: BLOOD SUGAR DIAGNOSTIC 1 EACH STRIP IN SCH ×4 (06:54→22:34)
[2023-06-25] MEDS: INSULIN REGULAR, HUMAN 100 UNIT/ML 3 ML VIAL SQ PRN ×3 (06:54→22:35)
[2023-06-25 07:00] VITALS: BP 115/60; TEMP 97.3; O2SAT 99
[2023-06-25] MEDS: HYDROGEL DRESSING 90 GM TUBE TP SCH (08:58)
[2023-06-25] MEDS: MEROPENEM 1 G in IV NS 0.9% 100 ML IV SCH ×2 (08:58→16:04)
[2023-06-25] MEDS: DAKINS QUARTER STRENGTH (0.125%) 480 ML BOTTLE TOP SCH (08:58)
[2023-06-25] MEDS: ASCORBIC ACID 500 MG TABLET PO SCH (08:59)
[2023-06-25] MEDS: LINEZOLID 600 MG TABLET PO SCH ×2 (08:59→20:38)
[2023-06-25] MEDS: THIAMINE HCL 100 MG TABLET PO SCH (08:59)
[2023-06-25] MEDS: ZINC SULFATE 220 MG CAPSULE PO SCH (08:59)
[2023-06-25] MEDS: BACITRACIN ZINC OINT (15 GM) 15 GM TUBE TP SCH ×2 (08:59→16:04)
[2023-06-25] MEDS: MULTIVIT W/MINERALS 1 TAB TABLET PO SCH (08:59)
[2023-06-25] MEDS: PROSOURCE / PROSTAT (PYXIS) 30 ML UDC PO SCH ×3 (09:00→16:04)
[2023-06-25] MEDS: ARGININE/GLUTAMINE/CALCIUM BMB 1 EACH POWD.PACK PO SCH ×2 (09:01→16:04)
[2023-06-25] MEDS: THERAHONEY GEL 1.5 OZ TUBE TP SCH ×6 (12:37→23:00)
[2023-06-25 16:00] VITALS: BP 157/88; TEMP 98.4; O2SAT 98
[2023-06-25] MEDS: ENOXAPARIN SODIUM 40 MG/0.4 ML DISP.SYRIN SQ SCH (20:44)
[2023-06-25] MEDS: ATORVASTATIN 40 MG TABLET PO SCH (22:25)
[2023-06-26] MEDS: INSULIN REGULAR, HUMAN 100 UNIT/ML 3 ML VIAL SQ PRN ×3 (00:13→22:34)
[2023-06-26] MEDS: MEROPENEM 1 G in IV NS 0.9% 100 ML IV SCH ×3 (00:20→16:37)
[2023-06-26] MEDS: THERAHONEY GEL 1.5 OZ TUBE TP SCH ×12 (01:00→23:00)
[2023-06-26] MEDS: IV NS 0.9% 1,000 ML IV PRN (05:02)
[2023-06-26] MEDS: GABAPENTIN 300 MG CAPSULE PO SCH ×3 (05:08→21:53)
[2023-06-26] MEDS: BACLOFEN (10 MG) 10 MG TABLET PO SCH ×3 (05:08→21:52)
[2023-06-26] MEDS: BLOOD SUGAR DIAGNOSTIC 1 EACH STRIP IN SCH ×4 (06:45→22:33)
[2023-06-26 07:30] VITALS: BP 102/67; TEMP 98.1; O2SAT 99
[2023-06-26] MEDS: PROSOURCE / PROSTAT (PYXIS) 30 ML UDC PO SCH ×3 (08:03→16:37)
[2023-06-26] MEDS: THIAMINE HCL 100 MG TABLET PO SCH (08:44)
[2023-06-26] MEDS: ASCORBIC ACID 500 MG TABLET PO SCH (08:44)
[2023-06-26] MEDS: ZINC SULFATE 220 MG CAPSULE PO SCH (08:44)
[2023-06-26] MEDS: ARGININE/GLUTAMINE/CALCIUM BMB 1 EACH POWD.PACK PO SCH ×2 (08:44→16:37)
[2023-06-26] MEDS: MULTIVIT W/MINERALS 1 TAB TABLET PO SCH (08:44)
[2023-06-26] MEDS: BACITRACIN ZINC OINT (15 GM) 15 GM TUBE TP SCH ×2 (08:44→16:37)
[2023-06-26] MEDS: LINEZOLID 600 MG TABLET PO SCH ×2 (08:44→21:52)
[2023-06-26] MEDS: DAKINS QUARTER STRENGTH (0.125%) 480 ML BOTTLE TOP SCH (08:50)
[2023-06-26] MEDS: HYDROGEL DRESSING 90 GM TUBE TP SCH (08:51)
[2023-06-26 16:00] VITALS: BP 133/83; TEMP 98.1; O2SAT 99
[2023-06-26 21:43] VITALS: BP 108/82; TEMP 98.2; O2SAT 98
[2023-06-26] MEDS: ATORVASTATIN 40 MG TABLET PO SCH (21:52)
[2023-06-26] MEDS: ENOXAPARIN SODIUM 40 MG/0.4 ML DISP.SYRIN SQ SCH (21:54)
[2023-06-27] MEDS: MEROPENEM 1 G in IV NS 0.9% 100 ML IV SCH ×3 (00:11→16:23)
[2023-06-27] MEDS: IV NS 0.9% 1,000 ML IV PRN (00:12)
[2023-06-27] MEDS: THERAHONEY GEL 1.5 OZ TUBE TP SCH ×6 (01:23→12:43)
[2023-06-27] MEDS: BACLOFEN (10 MG) 10 MG TABLET PO SCH ×3 (05:42→21:57)
[2023-06-27] MEDS: GABAPENTIN 300 MG CAPSULE PO SCH ×3 (05:42→21:57)
[2023-06-27] MEDS: INSULIN REGULAR, HUMAN 100 UNIT/ML 3 ML VIAL SQ PRN ×3 (06:45→17:22)
[2023-06-27] MEDS: BLOOD SUGAR DIAGNOSTIC 1 EACH STRIP IN SCH ×4 (06:45→22:40)
[2023-06-27 08:00] VITALS: BP 100/64; TEMP 97.5; O2SAT 97
[2023-06-27] MEDS: MULTIVIT W/MINERALS 1 TAB TABLET PO SCH (08:27)
[2023-06-27] MEDS: ASCORBIC ACID 500 MG TABLET PO SCH (08:27)
[2023-06-27] MEDS: ARGININE/GLUTAMINE/CALCIUM BMB 1 EACH POWD.PACK PO SCH ×2 (08:27→17:11)
[2023-06-27] MEDS: PROSOURCE / PROSTAT (PYXIS) 30 ML UDC PO SCH ×3 (08:27→17:11)
[2023-06-27] MEDS: THIAMINE HCL 100 MG TABLET PO SCH (08:27)
[2023-06-27] MEDS: ZINC SULFATE 220 MG CAPSULE PO SCH (08:27)
[2023-06-27] MEDS: BACITRACIN ZINC OINT (15 GM) 15 GM TUBE TP SCH (08:28)
[2023-06-27] MEDS: LINEZOLID 600 MG TABLET PO SCH ×2 (08:28→21:57)
[2023-06-27] MEDS: DAKINS QUARTER STRENGTH (0.125%) 480 ML BOTTLE TOP SCH (10:40)
[2023-06-27] MEDS: HYDROGEL DRESSING 90 GM TUBE TP SCH (10:41)
[2023-06-27 16:00] VITALS: BP 116/69; TEMP 98.1; O2SAT 98
[2023-06-27 20:00] VITALS: BP_SYST 108; BP_SYST 138; BP_DIAS 82; BP_DIAS 97; TEMP 98.2; TEMP 98.8; O2SAT 98
[2023-06-27] MEDS: ENOXAPARIN SODIUM 40 MG/0.4 ML DISP.SYRIN SQ SCH (21:57)
[2023-06-27] MEDS: ATORVASTATIN 40 MG TABLET PO SCH (21:57)
[2023-06-28] MEDS: MEROPENEM 1 G in IV NS 0.9% 100 ML IV SCH ×4 (00:14→23:17)
[2023-06-28] MEDS: BACLOFEN (10 MG) 10 MG TABLET PO SCH ×3 (05:31→21:03)
[2023-06-28] MEDS: GABAPENTIN 300 MG CAPSULE PO SCH ×3 (05:31→21:03)
[2023-06-28] MEDS: BLOOD SUGAR DIAGNOSTIC 1 EACH STRIP IN SCH ×4 (07:40→21:17)
[2023-06-28] MEDS: INSULIN REGULAR, HUMAN 100 UNIT/ML 3 ML VIAL SQ PRN ×4 (07:40→21:17)
[2023-06-28 08:00] VITALS: BP 120/57; TEMP 98.2; O2SAT 96
[2023-06-28] MEDS: PROSOURCE / PROSTAT (PYXIS) 30 ML UDC PO SCH ×3 (08:07→18:31)
[2023-06-28] MEDS: THERAHONEY GEL 1.5 OZ TUBE TP SCH (09:00)
[2023-06-28] MEDS ORDERED: THERAHONEY GEL 1.5 OZ TUBE TP SCH (11:00)
[2023-06-28] MEDS: ZINC SULFATE 220 MG CAPSULE PO SCH (11:52)
[2023-06-28] MEDS: MULTIVIT W/MINERALS 1 TAB TABLET PO SCH (11:52)
[2023-06-28] MEDS: ASCORBIC ACID 500 MG TABLET PO SCH (11:52)
[2023-06-28] MEDS: ARGININE/GLUTAMINE/CALCIUM BMB 1 EACH POWD.PACK PO SCH ×2 (11:52→17:00)
[2023-06-28] MEDS: THIAMINE HCL 100 MG TABLET PO SCH (11:52)
[2023-06-28] MEDS: HYDROGEL DRESSING 90 GM TUBE TP SCH (12:01)
[2023-06-28] MEDS: DAKINS QUARTER STRENGTH (0.125%) 480 ML BOTTLE TOP SCH (12:01)
[2023-06-28] MEDS: LINEZOLID 600 MG TABLET PO SCH ×2 (12:05→21:03)
[2023-06-28] MEDS: THERAHONEY GEL 1.5 OZ TUBE TP PRN (12:08)
[2023-06-28 16:00] VITALS: BP 117/73; TEMP 98.2; O2SAT 94
[2023-06-28] MEDS: ATORVASTATIN 40 MG TABLET PO SCH (21:03)
[2023-06-28] MEDS: ENOXAPARIN SODIUM 40 MG/0.4 ML DISP.SYRIN SQ SCH (21:04)
[2023-06-29] MEDS: BACLOFEN (10 MG) 10 MG TABLET PO SCH ×3 (05:30→20:48)
[2023-06-29] MEDS: GABAPENTIN 300 MG CAPSULE PO SCH ×3 (05:30→20:47)
[2023-06-29] MEDS: BLOOD SUGAR DIAGNOSTIC 1 EACH STRIP IN SCH ×4 (06:52→21:49)
[2023-06-29] MEDS: INSULIN REGULAR, HUMAN 100 UNIT/ML 3 ML VIAL SQ PRN ×3 (06:52→18:19)
[2023-06-29] MEDS: IV NS 0.9% 1,000 ML IV PRN (06:56)
[2023-06-29 07:30] VITALS: BP 91/53; TEMP 98.1; O2SAT 98
[2023-06-29] MEDS: MEROPENEM 1 G in IV NS 0.9% 100 ML IV SCH ×3 (08:33→23:19)
[2023-06-29] MEDS: PROSOURCE / PROSTAT (PYXIS) 30 ML UDC PO SCH ×3 (08:34→18:16)
[2023-06-29] MEDS: THIAMINE HCL 100 MG TABLET PO SCH (08:36)
[2023-06-29] MEDS: MULTIVIT W/MINERALS 1 TAB TABLET PO SCH (08:36)
[2023-06-29] MEDS: ASCORBIC ACID 500 MG TABLET PO SCH (08:36)
[2023-06-29] MEDS: ZINC SULFATE 220 MG CAPSULE PO SCH (08:36)
[2023-06-29] MEDS: LINEZOLID 600 MG TABLET PO SCH ×2 (08:36→20:48)
[2023-06-29] MEDS: DAKINS QUARTER STRENGTH (0.125%) 480 ML BOTTLE TOP SCH (08:37)
[2023-06-29] MEDS: THERAHONEY GEL 1.5 OZ TUBE TP PRN ×3 (08:38→09:50)
[2023-06-29] MEDS: HYDROGEL DRESSING 90 GM TUBE TP SCH (08:38)
[2023-06-29] MEDS: ARGININE/GLUTAMINE/CALCIUM BMB 1 EACH POWD.PACK PO SCH ×2 (09:48→18:16)
[2023-06-29] MEDS: THERAHONEY GEL 1.5 OZ TUBE TP SCH (09:51)
[2023-06-29] MEDS: DOCUSATE SODIUM 100 MG CAPSULE PO SCH (16:17)
[2023-06-29] MEDS: ACETAMINOPHEN 325 MG TABLET PO PRN (16:17)
[2023-06-29 20:00] VITALS: BP 107/66; TEMP 98.4; O2SAT 97
[2023-06-29] MEDS: ENOXAPARIN SODIUM 40 MG/0.4 ML DISP.SYRIN SQ SCH (20:49)
[2023-06-29] MEDS: ATORVASTATIN 40 MG TABLET PO SCH (21:24)
[2023-06-30] MEDS: IV NS 0.9% 1,000 ML IV PRN ×2 (04:43→23:16)
[2023-06-30] MEDS: BACLOFEN (10 MG) 10 MG TABLET PO SCH ×3 (04:44→21:18)
[2023-06-30] MEDS: GABAPENTIN 300 MG CAPSULE PO SCH ×3 (04:44→21:18)
[2023-06-30] MEDS: BLOOD SUGAR DIAGNOSTIC 1 EACH STRIP IN SCH ×4 (06:35→21:39)
[2023-06-30] MEDS: THIAMINE HCL 100 MG TABLET PO SCH (09:17)
[2023-06-30] MEDS: LINEZOLID 600 MG TABLET PO SCH ×2 (09:17→21:18)
[2023-06-30] MEDS: ASCORBIC ACID 500 MG TABLET PO SCH (09:17)
[2023-06-30] MEDS: MULTIVIT W/MINERALS 1 TAB TABLET PO SCH (09:17)
[2023-06-30] MEDS: DOCUSATE SODIUM 100 MG CAPSULE PO SCH ×3 (09:17→16:35)
[2023-06-30] MEDS: ZINC SULFATE 220 MG CAPSULE PO SCH (09:17)
[2023-06-30] MEDS: PROSOURCE / PROSTAT (PYXIS) 30 ML UDC PO SCH ×3 (09:18→16:00)
[2023-06-30] MEDS: ARGININE/GLUTAMINE/CALCIUM BMB 1 EACH POWD.PACK PO SCH ×2 (09:18→16:00)
[2023-06-30] MEDS: DAKINS QUARTER STRENGTH (0.125%) 480 ML BOTTLE TOP SCH (09:19)
[2023-06-30] MEDS: HYDROGEL DRESSING 90 GM TUBE TP SCH (09:19)
[2023-06-30] MEDS: THERAHONEY GEL 1.5 OZ TUBE TP PRN ×3 (09:19→09:26)
[2023-06-30] MEDS: THERAHONEY GEL 1.5 OZ TUBE TP SCH (09:27)
[2023-06-30] MEDS: MEROPENEM 1 G in IV NS 0.9% 100 ML IV SCH ×3 (09:29→23:17)
[2023-06-30] MEDS: INSULIN REGULAR, HUMAN 100 UNIT/ML 3 ML VIAL SQ PRN ×3 (12:26→21:39)
[2023-06-30 16:00] VITALS: BP 129/54; TEMP 98.4; O2SAT 96
[2023-06-30 20:00] VITALS: BP 108/69; TEMP 98.1; O2SAT 100
[2023-06-30] MEDS: ATORVASTATIN 40 MG TABLET PO SCH (21:18)
[2023-06-30] MEDS: ENOXAPARIN SODIUM 40 MG/0.4 ML DISP.SYRIN SQ SCH (21:19)
[2023-07-01] MEDS: BACLOFEN (10 MG) 10 MG TABLET PO SCH ×2 (04:29→12:41)
[2023-07-01] MEDS: GABAPENTIN 300 MG CAPSULE PO SCH ×2 (04:29→12:41)
[2023-07-01] MEDS: BLOOD SUGAR DIAGNOSTIC 1 EACH STRIP IN SCH ×3 (06:33→17:28)
[2023-07-01] MEDS: INSULIN REGULAR, HUMAN 100 UNIT/ML 3 ML VIAL SQ PRN ×2 (06:33→17:29)
[2023-07-01 08:00] VITALS: BP 167/99; TEMP 98.6; O2SAT 99
[2023-07-01] MEDS: PROSOURCE / PROSTAT (PYXIS) 30 ML UDC PO SCH ×3 (08:13→17:00)
[2023-07-01] MEDS: DOCUSATE SODIUM 100 MG CAPSULE PO SCH ×2 (08:13→17:00)
[2023-07-01] MEDS: LINEZOLID 600 MG TABLET PO SCH (08:13)
[2023-07-01] MEDS: ZINC SULFATE 220 MG CAPSULE PO SCH (08:13)
[2023-07-01] MEDS: THIAMINE HCL 100 MG TABLET PO SCH (08:14)
[2023-07-01] MEDS: HYDROGEL DRESSING 90 GM TUBE TP SCH (08:14)
[2023-07-01] MEDS: ASCORBIC ACID 500 MG TABLET PO SCH (08:14)
[2023-07-01] MEDS: MULTIVIT W/MINERALS 1 TAB TABLET PO SCH (08:14)
[2023-07-01] MEDS: DAKINS QUARTER STRENGTH (0.125%) 480 ML BOTTLE TOP SCH (08:15)
[2023-07-01] MEDS: MEROPENEM 1 G in IV NS 0.9% 100 ML IV SCH ×2 (08:17→16:00)
[2023-07-01] MEDS: THERAHONEY GEL 1.5 OZ TUBE TP PRN (09:38)
[2023-07-01] MEDS: ARGININE/GLUTAMINE/CALCIUM BMB 1 EACH POWD.PACK PO SCH ×2 (09:38→17:00)
[2023-07-01] MEDS: THERAHONEY GEL 1.5 OZ TUBE TP SCH (09:45)
[2023-07-01] MEDS ORDERED: NUTR1PAC14 PO (12:04)
[2023-07-01] MEDS ORDERED: ENOX40DI SQ (12:04)
[2023-07-01] MEDS ORDERED: COLL30OI TP (12:04)
[2023-07-01] MEDS ORDERED: SODI473S8 TOP (12:04)
[2023-07-01] MEDS ORDERED: MERO1VIA23 IV (12:04)
[2023-07-01] MEDS ORDERED: Linezolid PO (12:04)
[2023-07-01] MEDS ORDERED: ACET325T53 PO (12:04)
[2023-07-01] MEDS ORDERED: Hydrogel Dressing TP (12:04)
[2023-07-01] MEDS ORDERED: DOCU100C36 PO (12:04)
[2023-07-01] MEDS ORDERED: Blood Sugar Diagnostic IN (12:04)
[2023-07-01] MEDS ORDERED: Prosource PO (12:04)
[2023-07-01] MEDS ORDERED: LORAZEPAM INJ 2 MG/ML VIAL IV PRN (13:30)
== END 2023-07-01 18:53 | DRG 710 ==
LOC: ER 16:01 → MED 20:15
PROVIDERS: ADMIT Nurse Practitioner Acute Care; ATTEND Nurse Practitioner Acute Care
PROC: 0JBR0ZZ Excision of Left Foot Subcutaneous Tissue and Fascia, Open Approach (ICD-10-PCS; principal; 2023-06-16)
PROC: 0JBQ0ZZ Excision of Right Foot Subcutaneous Tissue and Fascia, Open Approach (ICD-10-PCS; 2023-06-16)
PROC: 0KBN0ZZ Excision of Right Hip Muscle, Open Approach (ICD-10-PCS; 2023-06-20)
PROC: 0QB10ZZ Excision of Sacrum, Open Approach (ICD-10-PCS; 2023-06-20)
PROC: 0KBP0ZZ Excision of Left Hip Muscle, Open Approach (ICD-10-PCS; 2023-06-20)
PROC: 0JBR0ZZ Excision of Left Foot Subcutaneous Tissue and Fascia, Open Approach (ICD-10-PCS; 2023-06-20)
PROC: 0JBQ0ZZ Excision of Right Foot Subcutaneous Tissue and Fascia, Open Approach (ICD-10-PCS; 2023-06-20)
PROC: 05H633Z Insertion of Infusion Device into Left Subclavian Vein, Percutaneous Approach (ICD-10-PCS; 2023-06-23)
PROC: B547ZZA Ultrasonography of Left Subclavian Vein, Guidance (ICD-10-PCS; 2023-06-23)
PROC: 0JBR0ZZ Excision of Left Foot Subcutaneous Tissue and Fascia, Open Approach (ICD-10-PCS; 2023-06-25)
PROC: 0JBQ0ZZ Excision of Right Foot Subcutaneous Tissue and Fascia, Open Approach (ICD-10-PCS; 2023-06-25)
DX: A41.9 Sepsis, unspecified organism (principal); G92.8 Other toxic encephalopathy; L89.154 Pressure ulcer of sacral region, stage 4; L89.214 Pressure ulcer of right hip, stage 4; E44.0 Moderate protein-calorie malnutrition; L89.323 Pressure ulcer of left buttock, stage 3; E11.42 Type 2 diabetes mellitus with diabetic polyneuropathy; L89.224 Pressure ulcer of left hip, stage 4; L89.314 Pressure ulcer of right buttock, stage 4; G82.20 Paraplegia, unspecified; E11.69 Type 2 diabetes mellitus with other specified complication; J12.9 Viral pneumonia, unspecified; M46.28 Osteomyelitis of vertebra, sacral and sacrococcygeal region; N31.9 Neuromuscular dysfunction of bladder, unspecified; N39.0 Urinary tract infection, site not specified; E11.621 Type 2 diabetes mellitus with foot ulcer; E88.09 Other disorders of plasma-protein metabolism, not elsewhere classified; D68.69 Other thrombophilia; D64.9 Anemia, unspecified; I10 Essential (primary) hypertension; Z87.891 Personal history of nicotine dependence; Z87.440 Personal history of urinary (tract) infections; E66.01 Morbid (severe) obesity due to excess calories; F15.10 Other stimulant abuse, uncomplicated; L02.415 Cutaneous abscess of right lower limb; M71.551 Other bursitis, not elsewhere classified, right hip; Z91.199 Patient's noncompliance with other medical treatment and regimen due to unspecified reason; R59.0 Localized enlarged lymph nodes; Z79.4 Long term (current) use of insulin; R45.851 Suicidal ideations; Z68.30 Body mass index [BMI] 30.0-30.9, adult; F29 Unspecified psychosis not due to a substance or known physiological condition; M85.872 Other specified disorders of bone density and structure, left ankle and foot; M85.871 Other specified disorders of bone density and structure, right ankle and foot; M89.572 Osteolysis, left ankle and foot; M89.571 Osteolysis, right ankle and foot; N50.89 Other specified disorders of the male genital organs; B96.1 Klebsiella pneumoniae [K. pneumoniae] as the cause of diseases classified elsewhere; B96.5 Pseudomonas (aeruginosa) (mallei) (pseudomallei) as the cause of diseases classified elsewhere; L97.518 Non-pressure chronic ulcer of other part of right foot with other specified severity; L97.428 Non-pressure chronic ulcer of left heel and midfoot with other specified severity; M20.42 Other hammer toe(s) (acquired), left foot; M20.41 Other hammer toe(s) (acquired), right foot; M86.8X7 Other osteomyelitis, ankle and foot; F10.21 Alcohol dependence, in remission; M84.474A Pathological fracture, right foot, initial encounter for fracture; M84.475A Pathological fracture, left foot, initial encounter for fracture; Z93.3 Colostomy status
CPT/HCPCS: 36410; 36415; 71045-TC; 72192-TC; 73630-TC; 80048-TC; 80061-TC; 80076-TC; 81001; 82962-TC; 83605-TC; 83735-TC; 84100-TC; 84484-TC; 85025-TC; 85652-TC; 85730-TC; 86140-TC; 87040-TC; 87081-TC; 87086-TC; A4217; A4223; A6248; A6253; A6403; G0378; G0480; J0360; J0692; J1650; J1815; J2185; J2543; J3370; J3490; J7030; J7060